=== PATIENT | female | born 1990 | race Caucasian/White ===

== ENCOUNTER → 2018-06-24 | Outpatient (CLI) | payer BC ==
[2018-06-24 17:34] LABS: BASO % 0.2 %; BASO ABS # 0.02 K/uL (0-0.2); EOS % 1.7 %; EOS ABS # 0.19 K/uL (0-0.5); HEMATOCRIT 37.9 % (37-47); HEMOGLOBIN 12.9 g/dL (12.0-16.0); IG# 0.02 K/uL (0.00-0.02); LYMPH % 25.2 %; LYMPH ABS # 2.78 K/uL (1.2-3.4); MEAN CELL VOLUME 86.5 fL (80-100); MEAN CORPUSCULAR HEMOGLOBIN 29.5 pg (25-34); MEAN PLATELET VOLUME 9.5 fL (7.4-10.4); MONO % 7.9 %; MONO ABS # 0.87 K/uL (0.11-0.59); NEUT % 64.8 %; NEUT ABS # 7.15 K/uL (1.4-6.5); PLATELET COUNT 327 K/uL (130-400); RED CELL DISTRIBUTION WIDTH CV 12.2 % (11.5-14.5); WHITE BLOOD COUNT 11.03 K/uL (4.8-10.8)
== END | disposition home or self-care (01) ==
LOC: C.LAB1850 16:11
PROVIDERS: ATTEND Obstetrics & Gynecology
DX: Z34.01 Encounter for supervision of normal first pregnancy, first trimester (principal)

== ENCOUNTER 2019-01-07 04:29 | Inpatient (IN) ==
[2019-01-07] MEDS: LACTATED RINGER'S 1,000 ML IV PRN ×2 (05:15→11:27)
[2019-01-07] MEDS ORDERED: OXYTOCIN 30 UNITS/500 ML BAG IV PRN ×3 (05:17→22:09)
[2019-01-07] MEDS ORDERED: PENICILLIN G POTASSIUM 6 MU in DEXTROSE 5% 250 ML IV STA (05:17)
--- NOTE | 2019-01-07 05:28 | History & Physical Report ---
Date of Service January 07, 2019 Assessment & Plan (1) Amniotic fluid leaking: IUP at 37 weeks gestation with SPROM tachycardia with 2+ ketones will start PCN G n0w with IV bolus anticipate vaginal (2) 37 or more weeks gestation of : (3) GBS carrier: History of Present Illness Primary Care Provider: NO PCP Patient is a 28 yo white female EDC 01/25/19 who presents at 37 weeks with SPROM for clear fluid. contractions have started shortly after this at 0300. 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 Currently she is taking azithromycin for sinus infection. blood type is A (+) Allergies Allergy/AdvReac Type Severity Reaction Status Date / Time No Known Allergies Allergy Unverified 01/07/19 04:54 Home Medications Home Medications Medication Instructions Recorded Confirmed Type azithromycin 250 mg PO DAILY 01/07/19 01/07/19 History vit-iron fum-folic ac 1 PO DAILY 01/07/19 History [ Vitamin] Patient History Social History Preferred Language: Urdu Communication Ability: Effective Door Framer Required: No Beliefs That Will Affect Care: None marital status: Current Living Situation: Spouse Other Information That Helps Us Care for You: No Feels Safe at Home: Yes Safety Concerns: Feels Safe At This Time Smoking Status: Never smoker Hx Alcohol Use: No Hx Substance Use: No Review of Systems All systems reviewed & are unremarkable except as noted in HPI & below Physical Exam Vital Signs (Past 24 Hours): Last Vital Signs Temp 37.1 C 01/07/19 04:40 Pulse 102 H 01/07/19 04:39 Resp 18 01/07/19 04:40 BP 134/80 01/07/19 04:39 Constitutional: WD/WN, vitals as above Respiratory: normal respiratory effort, lungs clear to auscultation Cardiovascular: RRR, no murmur, no edema Genitourinary: OB Exam Abdomen: + regular contractions Manual OB Exam: + cervical dilation 4 cm, + cervical effacement 80%, + station -1 and + amniotic fluid clear, nitrazine positive and ferning present OB Exam Monitor Tracing: + external FHT monitor used, + external uterine monitor used, + category II ( tachycardia at 160-170 bpm) and + normal FHT variability
[2019-01-07 05:44] LABS: Hematocrit (blood only) 36.3 % (37-47); Hemoglobin 11.9 g/dL (12.0-16.0); Mean Platelet Volume 10.6 fL (7.4-10.4); Platelet Count 254 K/uL (130-400); RDW Coefficient of Variation 14.1 % (11.5-14.5); RDW Standard Deviation 43.6 fL (36.4-46.3); Red Blood Count 4.32 M/uL (4.2-5.4); White Blood Count 15.77 K/uL (4.8-10.8)
[2019-01-07 05:50] LABS: Mean Corpuscular Hgb Conc 32.8 g/dL (32-36)
[2019-01-07] MEDS: LACTATED RINGER'S 1,000 ML IV SCH ×3 (05:52→22:10)
[2019-01-07] MEDS ORDERED: ePHEDrine sulfate 50 MG/ML AMP ONE (06:11)
[2019-01-07] MEDS ORDERED: BUPIVACAINE 0.25% 30 ML VIAL ONE (06:11)
[2019-01-07] MEDS ORDERED: fentaNYL 2MCG/ML ROPIV 1.25MG/ML 100 ML BAG EPI ONE (06:12)
[2019-01-07] MEDS ORDERED: fentaNYL citrate 100 MCG/2 ML VIAL ONE (06:12)
[2019-01-07] MEDS ORDERED: NALOXONE HCL 0.4 MG/1 ML VIAL/CARP IV PRN (07:42)
[2019-01-07] MEDS ORDERED: LACTATED RINGER'S 1,000 ML IV PRN ×2 (07:42→11:26)
[2019-01-07] MEDS ORDERED: ePHEDrine sulfate 50 MG/ML AMP IV PRN (07:42)
[2019-01-07] MEDS ORDERED: NALOXONE HCL 1 MG in SODIUM CHLORIDE 0.9% 1000ML 1,000 ML IV PRN (07:42)
[2019-01-07] MEDS ORDERED: DiphenhydrAMINE HCL 50 MG/ML VIAL IV PRN (07:42)
[2019-01-07] MEDS ORDERED: ONDANSETRON INJ 2 MG/ML 2 ML VIAL IV PRN (07:42)
[2019-01-07] MEDS ORDERED: NALBUPHINE HCL INJ 10 MG/ML AMP IV PRN (07:42)
--- NOTE | 2019-01-07 07:42 | Anesthesiology Consultation ---
Date of Service January 07, 2019 Assessment & Plan (1) 37 or more weeks gestation of : (2) Encounter for pre-operative examination: Chart Review Chart Review: Acceptable Risk for Surgery and Patient NOT seen in Pre Admission Testing Consults Requested none Proposed Anesthesia Anesthesia Type: Labor Epidural Risk / Benefits Reviewed With: PT / POA / Parent / Guardian, Accepts Plan and Informed Consent Obtained NPO Date Last Intake of Fluids: 01/07/19 Time Last Intake of Fluids: 07:00 Date Last Intake of Solids: 01/06/19 Time Last Intake of Solids: 19:00 History Height/Weight Height: 5 ft 6 in Weight: 114.759 kg Allergies Allergy/AdvReac Type Severity Reaction Status Date / Time No Known Allergies Allergy Unverified 01/07/19 04:54 Medications Home Medications Medication Instructions Recorded Confirmed Last Taken azithromycin 250 mg PO DAILY 01/07/19 01/07/19 01/06/19 vit-iron fum-folic ac 1 PO DAILY 01/07/19 01/05/19 [ Vitamin] Active Medications Generic Name Dose Route Start Last Admin Trade Name Giseel PRN Reason Stop Dose Admin Lactated Ringer's 1,000 mls @ 125 mls/hr 01/07/19 05:30 01/07/19 07:39 Lr IV 01/09/19 05:29 125 mls/hr .Q8H LM Infusion Lactated Ringer's 1,000 mls @ 999 mls/hr 01/07/19 05:17 01/07/19 06:16 Lr IV 02/06/19 05:16 Infused .Q1H1M PRN Infusion (Pre-Anesthesia) Social History Smoking Status: Never smoker Do You Dip or Chew Tobacco: No Hx Alcohol Use: No Hx Substance Use: No Physical Exam Vital Signs Last Vital Signs Temp 37.1 C 01/07/19 04:40 Pulse 90 01/07/19 07:38 Resp 18 01/07/19 06:01 BP 128/61 01/07/19 07:38 Pulse Ox 100 01/07/19 07:37 Constitutional + obese Gravid Abdomen ENMT Mouth: no TMJ abnormality Thyromental Distance: > or= 3.5 Finger Breadths Mallampati Class: II Neck normal visual inspection Respiratory normal respiratory effort Cardiovascular Rate/Rhythm: regular rate and regular rhythm Neurologic moves all extremities Psychiatric Orientation: alert Testing Laboratory Results 01/07/19 05:33
[2019-01-07] MEDS: PENICILLIN G POTASSIUM 3 MU in DEXTROSE 5% 100 ML IV PRN ×2 (09:50→14:03)
--- NOTE | 2019-01-07 11:20 | Obstetrical Progress Note ---
Date of Service January 07, 2019 Subjective Comfortable with epidural. FHT Cat 1, [place] Q 2-4 SVE 5/90/-2 with bulging membranes. AROM of remaining membranes performed. Continue labor. Physical Exam Vital Signs (Past 24 Hours): Last Vital Signs Temp 36.8 C 01/07/19 09:01 Pulse 99 H 01/07/19 11:12 Resp 20 01/07/19 10:00 BP 118/59 L 01/07/19 11:02 Pulse Ox 99 01/07/19 11:12
[2019-01-07] MEDS: fentaNYL 2MCG/ML ROPIV 1.25MG/ML 100 ML BAG EPI PRN ×2 (12:56→17:35)
[2019-01-07] MEDS: AZITHROMYCIN 250 MG TAB PO SCH (13:32)
[2019-01-07] MEDS ORDERED: GENTAMICIN CONSULT ACTIVE PRN (15:34)
--- NOTE | 2019-01-07 15:34 | Obstetrical Progress Note ---
Date of Service January 07, 2019 Subjective Comfortable with epidural. FHT tachycardic. Maternal pulse also elevated. Although no maternal temp, given maternal and tachy, will start amp/gent for chorio. Physical Exam Vital Signs (Past 24 Hours): Last Vital Signs Temp 36.7 C 01/07/19 14:04 Pulse 127 H 01/07/19 15:27 Resp 20 01/07/19 14:04 BP 152/69 H 01/07/19 15:18 Pulse Ox 97 01/07/19 15:27
[2019-01-07] MEDS ORDERED: GENTAMICIN SULFATE 120 MG in DEXTROSE 5% 100 ML IV ONE (16:30)
[2019-01-07] MEDS ORDERED: ACETAMINOPHEN 500 MG TAB PO PRN (16:41)
[2019-01-07] MEDS ORDERED: ACETAMINOPHEN 500 MG TAB ONE (16:45)
[2019-01-07] MEDS: AMPICILLIN 2,000 MG in SODIUM CHLOR 0.9% AD-VAN 100 ML IV SCH (18:21)
--- NOTE | 2019-01-07 20:32 | Obstetrical Progress Note ---
Date of Service January 07, 2019 Subjective FHT tachy, but moderate variability. [place] Q 2 Amp/gent infusing. Complete dilation, beginning to push. Physical Exam Vital Signs (Past 24 Hours): Last Vital Signs Temp 37.8 C H 01/07/19 18:57 Pulse 150 H 01/07/19 20:22 Resp 18 01/07/19 18:57 BP 153/90 H 01/07/19 20:12 Pulse Ox 97 01/07/19 20:22
--- NOTE | 2019-01-07 21:15 | Obstetrical Progress Note ---
Date of Service January 07, 2019 Subjective tachy, no mat temp. Continue abx. IV fluid bolus. Complete, pushing, +2 to +3 station. Making good progress, anticipate . Physical Exam Vital Signs (Past 24 Hours): Last Vital Signs Temp 37.8 C H 01/07/19 18:57 Pulse 139 H 01/07/19 21:12 Resp 18 01/07/19 18:57 BP 142/65 H 01/07/19 21:12 Pulse Ox 95 01/07/19 21:12
[2019-01-07] MEDS ORDERED: METHYLERGONOVINE MALEATE 0.2 MG/ML AMP ONE (21:32)
--- NOTE | 2019-01-07 21:56 | Anesthesia Procedure Note ---
Date of Service January 07, 2019 Anesthesia Post Epidural Note Vital Signs Vital Signs: Temp Pulse Resp BP Pulse Ox 37.8 C H 117 H 18 124/58 L 100 01/07/19 18:57 01/07/19 21:52 01/07/19 18:57 01/07/19 21:45 01/07/19 21:52 Pain Intensity Medial Back: Pain Intensity: 9 Notes Mental Status: alert / awake / arousable Nausea / Vomiting: adequately controlled Pain: adequately controlled Airway Patency, RR, SpO2: stable & adequate BP & HR: stable & adequate Hydration State: stable & adequate Neuraxial Anesthesia: was administered and sensory block is resolving Anesthetic Complications: no major complications apparent Epidural: Removed without complications and With tip intact
[2019-01-07] MEDS ORDERED: IBUPROFEN 600 MG TAB PO PRN (22:02)
[2019-01-07] MEDS ORDERED: DIPHTHERIA/TETANUS/PERTUSSIS 0.5 ML SYR/VIAL IM ONE (22:09)
[2019-01-07] MEDS ORDERED: ACETAMINOPHEN 325 MG TAB PO PRN (22:09)
[2019-01-07] MEDS ORDERED: HYDROCORTISONE ACETATE 25 MG SUPP PR PRN (22:09)
[2019-01-07] MEDS ORDERED: BENZOCAINE 20% AER SPR 82.5 GM CAN EXT PRN (22:09)
[2019-01-07] MEDS ORDERED: OXYCODONE/ACETAMINOPHEN 5mg/325mg TAB PO PRN (22:09)
[2019-01-07] MEDS ORDERED: METHYLERGONOVINE MALEATE 0.2 MG/ML AMP IM ONE (22:09)
[2019-01-07] MEDS ORDERED: SUPERCREAM 0.870% 15 GM JAR EXT PRN (22:09)
[2019-01-07] MEDS ORDERED: BISACODYL 10 MG SUPP PR PRN (22:09)
--- NOTE | 2019-01-07 22:34 | Procedure Note ---
Vaginal Delivery Summary Date of Service January 07, 2019 Vaginal Delivery Summary Predelivery diagnoses: 28-year-old at 37 weeks 3 days, spontaneous rupture of membranes, group B strep carrier, obesity Post delivery diagnoses: Same plus chorioamnionitis Procedure: Spontaneous vaginal delivery, repair of first-degree perineal laceration Surgeon: Dr. Moseley Estimated blood loss: 400 mL Findings: Viable female , Apgars 8 and 9. Weight pending, please see nursery records. Complications: None Description of delivery: Patient had presented with spontaneous rupture of membranes, she underwent Pitocin augmentation of labor. She received epidural. Mom and baby came tachycardic, therefore ampicillin and gentamicin were started. After administration of antibiotics, mom developed fever. Given progress of labor, patient was allowed to continue labor and progressed to complete. She then began to push. After approximately 1.5 hours of pushing, the head delivered in cephalic presentation, right occiput anterior. No nuchal cord was noted. The anterior shoulder delivered followed by the posterior shoulder followed by the body. The baby was placed on mother's abdomen, spontaneous cry was heard. The umbilical cord was abnormally short, so delayed cord clamping was not employed, and the cord was immediately doubly clamped and cut. Cord blood was obtained. The placenta was delivered spontaneously intact with a three-vessel cord. Pitocin was given. The uterus and vagina were swept of all clots and debris. The uterus was enlarged and boggy. Due to maternal chorioamnionitis there is concern for potential hemorrhage with her atonic uterus, therefore 1 dose of Methergine was given IM. The uterus then became firm with aggressive fundal massage. The cervix vagina and perineum were inspected, a first-degree perineal laceration was noted and repaired in standard fashion with 3-0 Vicryl. Excellent hemostasis was achieved. Mother and baby tolerated the delivery well and are recovering in stable and good condition in the room. Sponge, instrument, needle counts were correct at the conclusion of the delivery x2.
[2019-01-07] MEDS ORDERED: Nursing to Pharmacy Communication ONE (23:38)
[2019-01-08] MEDS: AMPICILLIN 2,000 MG in SODIUM CHLOR 0.9% AD-VAN 100 ML IV SCH ×4 (00:28→17:39)
[2019-01-08] MEDS: GENTAMICIN SULFATE 120 MG in DEXTROSE 5% 100 ML IV SCH ×3 (01:40→16:13)
[2019-01-08 06:52] LABS: Hematocrit (blood only) 36.6 % (37-47); Hemoglobin 11.9 g/dL (12.0-16.0); Mean Corpuscular Hgb Conc 32.5 g/dL (32-36); Mean Corpuscular Volume 84.5 fL (80-100); Mean Platelet Volume 10.8 fL (7.4-10.4); Platelet Count 283 K/uL (130-400); RDW Coefficient of Variation 14.7 % (11.5-14.5); RDW Standard Deviation 45.4 fL (36.4-46.3); Red Blood Count 4.33 M/uL (4.2-5.4); White Blood Count 24.83 K/uL (4.8-10.8)
--- NOTE | 2019-01-08 07:20 | Obstetrical Progress Note ---
Date of Service January 08, 2019 Assessment & Plan (1) Status post vaginal delivery: Patient is a 28 year old complicated by GBS+ and [place] now PPD 1 s/p -Vital signs WNL bp 120/74 T36.9, -Hemoglobin is 11.9 down from 11.9 on admission. no si/sx of anemia. -1 dose of gent s/p delivery than d/c -Pt is doing clinically well -Continue to encourage ambulation as tolerated, Monitor and control pain with motrin prn, Continue diet as tolerated. -Continue to support and encourage breast feeding -Routine care Supervising Physician Co-Signing Physician Notes I have seen/examined patient. I have read above note performed by resident and I agree with above. Any changes/additions are as follows: PPD#1 doing well. Afebrile since delivery. Vitals normal. Will give 24h abx after delivery. Anticipate discharge home tomorrow. Marbella Moseley DO [facility] Subjective Pt doing well this morning sleeping in bed. has been afebrile overnight. Patient is tolerating her diet, ambulating, passing gas and voiding, still no bm. Reports moderate lochia. Denies H/A, chest pain, palpitations and uti syx. Plan is to breast feed No concerns at this time pain is well controlled Physical Exam Vital Signs (Past 24 Hours): Last Vital Signs Temp 36.9 C 01/08/19 04:50 Pulse 97 H 01/08/19 04:50 Resp 18 01/08/19 04:50 BP 120/74 01/08/19 04:50 Pulse Ox 94 01/07/19 23:48 Constitutional: WD/WN, vitals as above Eyes: normal visual bonilla by confrontation Respiratory: normal respiratory effort, lungs clear to auscultation Cardiovascular: RRR, no murmur, no edema Gastrointestinal (Abdomen): normal bowel sounds, soft, nontender, no hepatosplenomegaly (uterus firm and below umbilicus ) Skin: no rashes, warm and dry Results & Data Laboratory Results 01/08/19 Range/Units 06:24 WBC 24.83 H (4.8-10.8) K/uL RBC 4.33 (4.2-5.4) M/uL Hgb 11.9 L (12.0-16.0) g/dL Hct 36.6 L (37-47) % MCV 84.5 (80-100) fL MCH 27.5 (25-34) pg MCHC 32.5 (32-36) g/dL RDW Std Deviation 45.4 (36.4-46.3) fL RDW Coeff of Fabián 14.7 H (11.5-14.5) % Plt Count 283 (130-400) K/uL MPV 10.8 H (7.4-10.4) fL Medications Administered Current Inpatient Medications Acetaminophen (Tylenol) 650 mg PO Q6H PRN PRN Reason: Pain/SHETH/Fever Stop: 02/06/19 22:08 Azithromycin (Zithromax) 250 mg PO DAILY [facility] Stop: 01/17/19 08:59 Last Admin: 01/07/19 13:32 Dose: Not Given Documented by: Benzocaine (Dermoplast Pain Relieving [place]) 1 appln EXT PRN PRN PRN Reason: Perineal Discomfort Stop: 02/06/19 22:08 Bisacodyl (Dulcolax) 5 mg PO 2000 [facility] Stop: 01/08/19 20:01 Bisacodyl (Dulcolax) 10 mg [place] DAILY PRN PRN Reason: No BM on 2nd post- day Stop: 02/06/19 22:08 Cocaine HCl (Supercream 0.870%) 1 gm EXT BID PRN PRN Reason: Hemorrhoidal Inflammation Stop: 01/21/19 22:08 Docusate Sodium (Colace) 100 mg PO BID [facility] Stop: 02/07/19 08:59 Hydrocortisone (Anusol Hc) 25 mg [place] BID PRN PRN Reason: Hemorrhoidal Inflammation Stop: 02/06/19 22:08 Lactated Ringer's (Lr) 1,000 mls @ 999 mls/hr IV .Q1H1M PRN PRN Reason: (Pre-Anesthesia) Stop: 02/06/19 05:16 Last Infusion: 01/07/19 11:47 Dose: 125 mls/hr Documented by: Ampicillin Sodium 2,000 mg/ (Sodium Chloride) 100 mls @ 200 mls/hr IV Q6H [facility] Stop: 01/08/19 22:00 Last Admin: 01/08/19 04:51 Dose: 200 mls/hr Documented by: Oxytocin (Pitocin) 30 units in 500 mls @ 333.333 mls/hr IV .Q1H30M PRN; Protocol PRN Reason: BLEEDING CONTROL Stop: 02/06/19 22:08 Gentamicin Sulfate 120 mg/ (Dextrose) 103 mls @ 100 mls/hr IV Q8H LM; Protocol Stop: 01/18/19 00:00 Last Admin: 01/08/19 01:40 Dose: 100 mls/hr Documented by: Miscellaneous (Gentamicin Trough) mls @ 0 mls/hr N/A 01/08/19@1530 [facility] Stop: 01/08/19 15:31 Miscellaneous (Gentamicin Peak) mls @ 0 mls/hr N/A 01/08/19@1700 [facility] Stop: 01/08/19 17:01 Ibuprofen (Motrin) 600 mg PO Q4H PRN PRN Reason: Pain/SHETH/Cramping/Fever Stop: 02/06/19 22:01 Miscellaneous Information (Consult) 1 ea N/A UD PRN PRN Reason: Consult Stop: 02/06/19 15:33 Oxycodone/Acetaminophen (Percocet 5mg/325mg) 1 tab PO Q4H PRN PRN Reason: Pain not relieved by... Stop: 01/21/19 22:08 Prenat Multivit/Chain Maker Loom Control/Iron/Folic Ac ( Vitamin) 1 tab PO QAM [facility] Stop: 02/07/19 08:59 Resident Activity Tracking Resident Involvement: Resident Care Provided Care Provided: Adult Hospital Medicine
[2019-01-08] MEDS ORDERED: Nursing to Pharmacy Communication ONE (08:16)
[2019-01-08] MEDS: DOCUSATE SODIUM 100 MG CAP PO SCH ×2 (10:03→21:20)
[2019-01-08] MEDS: AZITHROMYCIN 250 MG TAB PO SCH (10:03)
[2019-01-08] MEDS: PRENATAL VITAMIN 1 TAB PO SCH (10:03)
[2019-01-08] MEDS ORDERED: GENTAMICIN TROUGH 1 EA ONE (15:30)
[2019-01-08] MEDS ORDERED: GENTAMICIN PEAK 1 EA SCH (17:00)
[2019-01-08] MEDS ORDERED: BISACODYL 5 MG TABEC PO SCH (20:00)
--- NOTE | 2019-01-09 05:55 | Obstetrical Progress Note ---
Date of Service January 09, 2019 Assessment & Plan (1) Status post vaginal delivery: PPD 2. doing well Stable for discharge Subjective Ambulation: ambulating normally Voiding: no voiding problems Passing Gas:: Yes Diet Tolerance:: regular diet Lochia:: Moderate Physical Exam Vital Signs (Past 24 Hours) Last Vital Signs Temp 36.5 C 01/08/19 23:15 Pulse 90 01/08/19 23:15 Resp 18 01/08/19 23:15 BP 114/69 01/08/19 23:15 Pulse Ox 94 01/07/19 23:48 Genitourinary OB Exam Abdomen: + fundal height Fundus: + firm and + relation to umbilicus (Below); not tender and not boggy
[2019-01-09 07:02] LABS: Hematocrit (blood only) 30.2 % (37-47); Hemoglobin 9.7 g/dL (12.0-16.0)
[2019-01-09] MEDS: PRENATAL VITAMIN 1 TAB PO SCH (08:43)
[2019-01-09] MEDS: DOCUSATE SODIUM 100 MG CAP PO SCH (08:43)
[2019-01-09] MEDS: AZITHROMYCIN 250 MG TAB PO SCH (08:43)
== END 2019-01-09 18:40 | disposition home or self-care (01) | DRG 805 ==
LOC: OPB 04:29 → 4S1 04:31 → 4S2 01-08